=== PATIENT | male | born 1995 | race Caucasian/White ===

== ENCOUNTER 2021-01-29 16:21 | Emergency (ER) | payer BC, SELFPAY ==
[2021-01-29 16:22] VITALS: BP 134/79; PULSE 89; RESP 16; TEMP 36.6; O2SAT 98; BMI 38.1
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
[2021-01-29 18:05] VITALS: BP 121/68; PULSE 78; RESP 16; TEMP 36.6; O2SAT 98
== END 2021-01-29 18:08 | disposition home or self-care (01) ==
PROVIDERS: Emergency Provider Family Medicine
DX: S40.012A Contusion of left shoulder, initial encounter (principal); S80.12XA Contusion of left lower leg, initial encounter; V53.5XXA Driver of pick-up truck or van injured in collision with car, pick-up truck or van in traffic accident, initial encounter; Y92.414 Local residential or business street as the place of occurrence of the external cause
CPT/HCPCS: 99281